=== PATIENT | male | born 1965 | race Caucasian/White ===

== ENCOUNTER 2017-11-24 23:51 | Inpatient (IN) | payer OTHER ==
[~2017-11-24] VITALS: Ht 188 cm; Wt 89.0 kg
[~2017-11-24 23:51] MED LIST: BACTRIM,SEPT1 TABLET PO; CLEOCIN300 MG PO; HALFPRIN162 MG PO; KEFLEX500 MG PO; LEVAQUIN750 MG PO; OXYCODONE HCL5 M1 PO; PERCOCET 5/31 TABLET PO
[2017-11-25 00:57] LABS: BASOPHIL COUNT 0.1 K/uL (0-0.1); EOSINOPHIL (%) 4.5 % (0-5); EOSINOPHIL COUNT 0.5 K/uL (0-0.3); HEMATOCRIT 44.6 % (38.0-50.0); HEMOGLOBIN 15.2 G/DL (12.5-16.6); IMMATURE GRANULOCYTE (%) 0.8 % (0.0-0.7); LYMPHOCYTE (%) 28.2 % (15-42); MCH 30.6 PG (29.0-34.0); MCHC 34.1 G/DL (30.0-36.0); MCV 89.9 FL (86-99); MONOCYTE (%) 11.3 % (3-12); MONOCYTE COUNT 1.2 K/uL (0-0.8); NEUTROPHIL (%) 54.2 % (45-76); NEUTROPHIL COUNT 5.8 K/uL (1.8-6.4); PLATELET COUNT 292 K/uL (156-360); RBC DIS.WIDTH-CV 12.7 % (11.8-14.6); RBC DIS.WIDTH-SD 41.8 % (39-53); RED BLOOD COUNT 4.96 M/uL (4.00-5.50); WHITE BLOOD COUNT 10.8 K/uL (4.1-10.2)
[2017-11-25 01:06] LABS: CHLORIDE 103 mEq/L (99-109); POTASSIUM 3.7 mEq/L (3.7-5.4); SODIUM 136 mEq/L (136-147)
[2017-11-25 01:07] LABS: GLUCOSE 301 mg/dL (70-99)
[2017-11-25 01:11] LABS: CREATININE 1.1 mg/dL (0.6-1.3); GFR ESTIMATE (CALCULATED) > 59 mL/min/ (58.99-99999)
[2017-11-25 01:12] LABS: UREA NITROGEN (BUN) 17 mg/dL (9-23)
[2017-11-25] MEDS ORDERED: DOXYCYCLINE HY100 MG PO (02:47)
[2017-11-25] MEDS ORDERED: METFORMIN HCL500 M4 PO (02:48)
[2017-11-25] MEDS ORDERED: CLOPIDOGREL75 MG PO (02:49)
[2017-11-25] MEDS ORDERED: LISINOPRIL10 MG PO (02:49)
[2017-11-25] MEDS ORDERED: AMOX TR-K CLV1 EAC4 PO (02:50)
[2017-11-25] MEDS ORDERED: PANTOPRAZOLE SO40 MG PO (02:51)
[2017-11-25] MEDS ORDERED: COREG6.25 M1 PO (02:51)
[2017-11-25 03:37] LABS: MAGNESIUM 1.8 mg/dL (1.3-2.7)
[2017-11-25 03:41] LABS: SERUM ETHYL ALCOHOL 15 mg/dL
[2017-11-25 04:05] LABS: APPEARANCE CLEAR ((CLEAR)); BILIRUBIN NEGATIVE; BLOOD NEGATIVE; COLOR YELLOW ((YELLOW)); GLUCOSE (STRIP) NEGATIVE; KETONES NEGATIVE; LEUKOCYTES NEGATIVE; NITRITE NEGATIVE; PROTEIN (STRIP) NEGATIVE; UCUL ADDED? NO; UROBILINOGEN 0.2 MG/DL (0.2-1.0)
[2017-11-25 04:38] LABS: BENZODIAZEPINES, URINE SCREEN Negative (200 ng/mL)
[2017-11-25 04:58] VITALS: BP 180/79
[2017-11-25 07:37] VITALS: BP 181/84
[2017-11-25] MEDS ORDERED: LYRICA150 MG PO (08:59)
[2017-11-25 16:38] VITALS: BP 147/66
[2017-11-26 00:22] VITALS: BP 128/66
[2017-11-26 06:01] LABS: BASOPHIL (%) 1.2 % (0-1); BASOPHIL COUNT 0.1 K/uL (0-0.1); EOSINOPHIL (%) 4.1 % (0-5); EOSINOPHIL COUNT 0.4 K/uL (0-0.3); HEMATOCRIT 39.9 % (38.0-50.0); HEMOGLOBIN 13.3 G/DL (12.5-16.6); IMMATURE GRANULOCYTE (%) 0.6 % (0.0-0.7); LYMPHOCYTE (%) 29.4 % (15-42); LYMPHOCYTE COUNT 2.5 K/uL (1.0-2.8); MCH 30.4 PG (29.0-34.0); MCHC 33.3 G/DL (30.0-36.0); MCV 91.1 FL (86-99); MONOCYTE COUNT 0.8 K/uL (0-0.8); NEUTROPHIL (%) 55.7 % (45-76); NEUTROPHIL COUNT 4.8 K/uL (1.8-6.4); PLATELET COUNT 252 K/uL (156-360); RBC DIS.WIDTH-CV 12.8 % (11.8-14.6); RBC DIS.WIDTH-SD 42.8 % (39-53); RED BLOOD COUNT 4.38 M/uL (4.00-5.50); WHITE BLOOD COUNT 8.6 K/uL (4.1-10.2)
[2017-11-26 06:24] LABS: CHLORIDE 106 MEQ/L (99-109); GFR ESTIMATE (CALCULATED) > 59 mL/min/ (58.99-99999); GLUCOSE 192 mg/dL (70-99); POTASSIUM 4.2 MEQ/L (3.7-5.4); SODIUM 138 MEQ/L (136-147); UREA NITROGEN (BUN) 16 mg/dL (9-23)
[2017-11-26 08:05] VITALS: BP 165/77
[2017-11-26 16:26] VITALS: BP 164/74
[2017-11-26 17:49] LABS: VANCOMYCIN, TROUGH 9.5 MCG/ML (10-20)
[2017-11-26 20:25] LABS: C-REACTIVE PROTEIN 28.8 MG/L (0-10)
[2017-11-26 23:47] VITALS: BP 133/60
[2017-11-27 07:10] VITALS: BP 184/80
[2017-11-27 10:55] LABS: HEMOGLOBIN A1c (GLYCOHEMOGLOB) 7.1 % (Below 5.7)
[2017-11-27] MEDS ORDERED: NICOTINE PATCH1 EAC2 TD (14:34)
== END 2017-11-27 15:25 | disposition home or self-care (01) | DRG 603 ==
LOC: EME 23:51 → 5EAST 11-25 02:06 → EDOF 11-25 02:06 → ENRESERV 11-25 02:07 → 5EAST 11-25 03:59
PROVIDERS: Emergency Medicine; Hospitalist; Internal Medicine; Physician Assistant Medical; Student in an Organized Health Care Education/Training Program
DX: L03.116 Cellulitis of left lower limb (principal); M46.24 Osteomyelitis of vertebra, thoracic region; I11.0 Hypertensive heart disease with heart failure; I50.9 Heart failure, unspecified; E78.5 Hyperlipidemia, unspecified; K21.9 Gastro-esophageal reflux disease without esophagitis; J44.9 Chronic obstructive pulmonary disease, unspecified; E11.42 Type 2 diabetes mellitus with diabetic polyneuropathy; E11.51 Type 2 diabetes mellitus with diabetic peripheral angiopathy without gangrene; E11.610 Type 2 diabetes mellitus with diabetic neuropathic arthropathy; E11.69 Type 2 diabetes mellitus with other specified complication; F17.210 Nicotine dependence, cigarettes, uncomplicated; I25.118 Atherosclerotic heart disease of native coronary artery with other forms of angina pectoris; M46.44 Discitis, unspecified, thoracic region; G89.29 Other chronic pain; F10.10 Alcohol abuse, uncomplicated; Y90.0 Blood alcohol level of less than 20 mg/100 ml; E11.65 Type 2 diabetes mellitus with hyperglycemia; Z79.84 Long term (current) use of oral hypoglycemic drugs; Z89.412 Acquired absence of left great toe; Z91.19 Patient's noncompliance with other medical treatment and regimen; Z95.1 Presence of aortocoronary bypass graft; Z89.422 Acquired absence of other left toe(s); Z59.0 Homelessness; Z88.5 Allergy status to narcotic agent; Z91.14 Patient's other noncompliance with medication regimen; Z82.49 Family history of ischemic heart disease and other diseases of the circulatory system; Z83.3 Family history of diabetes mellitus
CPT/HCPCS: 73630; 80048; 80202; 80306 90; 81003; 82948; 83036; 83735; 85025; 86140; 93971; 99281; 99284; G0480; J0690; J1650; J1815; J3370